=== PATIENT | male | born 1960 | race Caucasian/White ===

== ENCOUNTER 2018-06-24 22:40 | Emergency (ER) | payer OTHER ==
[~2018-06-24] VITALS: Ht 177.8 cm; Wt 81.6 kg
--- NOTE | 2018-06-24 22:40 | NUR ---
PT BIBA BLS. TAKEN TO BED 9
--- NOTE | 2018-06-24 22:40 | NUR ---
BIBA FOR ETOH. PER EMS PT HAS BEEN DRINKING AT HOME TODAY. PT HAS HX OF HTN/CVA AND BRAIN TUMOR. UPON ARRIVAL TO ED, UNABLE TO OBTAIN HX FROM PT DUE TO ETOH. BREATH SOUNDS CLEAR, VSS. PT CONTRACTED ON LEFT SIDE AND PT UNSTEADY ON FEET. PT CONTINUES TO TRY AND STAND ON HIS OWN. PATIENT POSITIONED FOR COMFORT; HOB ELEVATED; BEDRAILS UP X2; BED DOWN. ER MD MADE AWARE OF PT STATUS.
[2018-06-24 22:42] VITALS: BP 164/88
[2018-06-24 23:15] LABS: BASOPHILS # (AUTO) 0.1 K/uL (0.00-0.22); EOSINOPHILS # (AUTO) 0.2 K/uL (0-0.4); EOSINOPHILS % (AUTO) 1.7 % (0.0-4.0); HEMATOCRIT 42.2 % (36-52); HEMOGLOBIN 14.4 g/dL (12.0-18.0); LYMPHOCYTES # (AUTO) 3.1 K/uL (2.0-11.5); LYMPHOCYTES % (AUTO) 33.8 % (20.5-51.1); MEAN CORPUSCULAR HEMOGLOBIN 32 pg (27-31); MEAN CORPUSCULAR HGB CONC 34 g/dL (33-37); MEAN CORPUSCULAR VOLUME 92.6 fL (80-94); MONOCYTES # (AUTO) 0.6 K/uL (0.8-1.0); MONOCYTES % (AUTO) 6.2 % (1.7-9.3); NEUTROPHILS # (AUTO) 5.3 K/uL (1.8-7.7); NEUTROPHILS % (AUTO) 57.3 % (42.2-75.2); PLATELET COUNT (AUTO) 167 K/uL (140-450); RED BLOOD CELL COUNT(AUTO) 4.56 MIL/uL (4.20-6.10); RED CELL DISTRIBUTION WIDTH 13.9 % (11.6-13.7); WHITE BLOOD COUNT (AUTO) 9.2 K/uL (4.8-10.8)
[2018-06-24 23:31] LABS: ALBUMIN 3.7 g/dL (3.4-5.0); ANION GAP 11.6 (8-16); CARBON DIOXIDE 29.9 mmol/L (21-32); CREATININE 1.3 mg/dL (0.7-1.3); TOTAL BILIRUBIN 0.5 mg/dL (0.0-1.0)
[2018-06-24 23:35] LABS: POTASSIUM 2.5 mmol/L (3.5-5.1)
[2018-06-25] MEDS ORDERED: LORazepam 2 MG/ML VIAL IVP ONE (00:10)
[2018-06-25] MEDS ORDERED: KCL 20 MEQ/WATER INJ PREMIX 100 ML IV ONE (00:10)
--- NOTE | 2018-06-25 00:19 | NUR ---
PT TAKEN TO CT
--- NOTE | 2018-06-25 00:30 | NUR ---
PT RETURN FROM CT
--- NOTE | 2018-06-25 01:31 | NUR ---
Patient appears to be resting comfortably in bed. Vital Signs within normal limits. Respirations even and unlabored. Potter cath secure and draining.
--- NOTE | 2018-06-25 02:01 | NUR ---
PT MOVED TO BED 7
--- NOTE | 2018-06-25 02:20 | NUR ---
PT PULLED OUT PIV. MADE AWARE. KCL STOPPED AT THIS TIME.
--- NOTE | 2018-06-25 03:00 | NUR ---
Patient appears to be resting comfortably in bed. Respirations even and unlabored.
[2018-06-25 06:10] VITALS: BP 116/75
--- NOTE | 2018-06-25 06:10 | NUR ---
Patient discharged with v/s stable. Written and verbal after care instructions given and explained. Patient verbalized understanding. Ambulatory with steady gait. All questions addressed prior to discharge. Advised to follow up with PMD.
== END 2018-06-25 01:10 | disposition home or self-care (01) ==
LOC: MED 22:40
DX: F10.129 Alcohol abuse with intoxication, unspecified (principal); I10 Essential (primary) hypertension; F17.210 Nicotine dependence, cigarettes, uncomplicated; Z86.73 Personal history of transient ischemic attack (TIA), and cerebral infarction without residual deficits
CPT/HCPCS: 36415; 70450; 80053; 85025; 96361; 96374; 99284; G0482; J2060; J3480